=== PATIENT | female | born 1995 | race Caucasian/White ===

== ENCOUNTER 2018-05-23 08:28 | Emergency (ER) | payer BC, MEDICAID ==
--- NOTE | 2018-05-23 08:37 | EDPHY ---
H & P Time Seen by Provider: 05/23/18 08:35 HPI/ROS: Chief complaint. Possible miscarriage HPI. Patient is a 22-year-old female who thinks she is about 90 tendon weeks noticed some vaginal spotting and bleeding with blood in toilet this morning. The bleeding is less than normal menstrual period. She has had previous miscarriage. Denies any cramping. She does note urinary frequency. Patient is 3/para 1 with miscarriage of twin in the 1st . Current child is 4 years old. No pre nasal care yet. No chest pain or shortness of breath. No fever. ROS 10 systems were reviewed and negative with the exception of the elements mentioned in the history of present illness Past Medical/Surgical History: Healthy with previous and miscarriage Social History: Single, nonsmoker, no alcohol Smoking Status: Never smoked Physical Exam: General Appearance: Alert pleasant well-developed female mild distress vital signs are stable Eyes: Pupils equal and round no pallor or injection. ENT, Mouth: Mucous membranes are moist. Respiratory: There are no retractions, lungs are clear to auscultation. Cardiovascular: Regular rate and rhythm. Gastrointestinal: Abdomen is soft with mild discomfort to the left adnexal area that she describes as tightness. No masses. Normal bowel sounds Neurological: Awake and alert, sensory and motor exams grossly normal. Skin: Warm and dry, no rashes. Musculoskeletal: Neck is supple nontender. Extremities symmetrical, full range of motion. Psychiatric: Patient is oriented X 3, there is no agitation. Constitutional: Initial Vital Signs Temperature (C) 37.1 C 05/23/18 08:43 Heart Rate 87 05/23/18 08:43 Respiratory Rate 18 05/23/18 08:43 Blood Pressure 131/76 H 05/23/18 08:43 O2 Sat (%) 97 05/23/18 08:43 O2 Delivery Mode Room Air Allergies/Adverse Reactions: No Known Allergies Allergy (Verified 05/23/18 08:41) Home Medications: Medication Instructions Recorded [facility] 08/02/15 Medical Decision Making - Diagnostics Imaging Results: Ultrasound shows a viable intrauterine at 9 weeks 1 day by measurements. Good heart tones. There is a subchorionic hemorrhage present Procedures: Review of old records shows blood type to be a positive IV normal saline ED Course/Re-evaluation: Point of care CBC and urine are normal Re-evaluation 10:20 a.m.. Patient is stable. She and I discussed imaging and lab results. We discussed treatment plan including criteria for return importance of follow-up and further evaluation. She expresses understanding and agreement Differential Diagnosis: I considered demise, miscarriage, ectopic . Patient has subchorionic hemorrhage which is likely cause of her bleeding. Patient has an IUP with heartbeat. - Data Points Point of Care Test Results: CBC CBC Collection Date 05/23/18 CBC Collection Time 09:38 WBC 5.42 RBC 4.65 HGB 14.3 HCT 41.4 PLT 198 Neut # 3.47 Neut 64.1 LYMPH # 1.35 LYMPH 24.9 MCV 89.0 Urine Dip Collection Date 05/23/18 Collection Time 09:35 Specific [place] (1.002-1.030) 1.020 PH (5.0-7.5) 7.0 Leukocytes (Negative) Negative Nitrites (Negative) Negative Protein (Negative) Negative Glucose (Negative) Negative Ketones (Negative) Negative Urobilnogen (0.2-1.0 EU) 0.2 Bilirubin (Negative) Negative Blood (Negative) Negative Departure - Departure Disposition: Home, Routine, Self-Care Clinical Impression: Vaginal bleeding affecting early Subchorionic hemorrhage in first trimester Qualifiers: Fetus number: single or unspecified fetus Qualified Code(s): O41.8X10 - Other specified disorders of amniotic fluid and membranes, first trimester, not applicable or unspecified; O46.8X1 - Other antepartum hemorrhage, first trimester; O46.8X1 - Other antepartum hemorrhage, first trimester Condition: Good Instructions: Non-Threatening First Trimester Vaginal Bleed (ED) Additional Instructions: Easy activity the next 1-2 days. No intercourse for 2-3 days. May use Tylenol but not ibuprofen for discomfort Return for increased bleeding or pain Re-evaluation 2-3 days by cell tender helper for any continued bleeding Referrals: Karina Baez MD [Primary Care Provider] - As per Instructions SHABBIR NORIEGA [Non Staff Provider ()] - 2-3 days, if not improved
[2018-05-23 13:04] VITALS: BP 133/86
== END 2018-05-23 10:57 | disposition home or self-care (01) ==
LOC: CED 08:28
DX: O20.8 Other hemorrhage in early pregnancy (principal); Z3A.09 9 weeks gestation of pregnancy
CPT/HCPCS: 99284-ER